=== PATIENT | female | born 1940 | race Caucasian/White ===

== ENCOUNTER → 2017-10-10 | Outpatient (CLI) | payer MEDICARE ==
[~2017-10-10] MED LIST: ALPR0.5T3 PO; CALC600T10 PO; CRAN500C9 PO; LOSA100T PO; MAGN500T2 PO; VITACAP7 PO
[2017-10-10 12:43] LABS: AUTOMATED NEUTROPHIL # 6.2 TH/MM3 (1.8-7.7); BASOPHIL # 0.1 TH/MM3 (0-0.2); BASOPHIL % 0.9 % (0.0-2.0); EOSINOPHIL # 0.1 TH/MM3 (0-0.4); EOSINOPHIL % 1.5 % (0.0-4.0); HEMATOCRIT 37.9 % (35.0-46.0); HEMOGLOBIN 13.4 GM/DL (11.6-15.3); LYMPH % 13.5 % (9.0-44.0); LYMPHOCYTE # 1.1 TH/MM3 (1.0-4.8); MEAN CELL VOLUME 86.5 FL (80.0-100.0); MEAN CORPUSCULAR HEMOGLOBIN 30.6 PG (27.0-34.0); MEAN CORPUSCULAR HGB CONC 35.3 % (32.0-36.0); MEAN PLATELET VOLUME 6.6 FL (7.0-11.0); MONO % 9.3 % (0.0-8.0); MONOCYTE # 0.8 TH/MM3 (0-0.9); NEUT % 74.8 % (16.0-70.0); PLATELET COUNT 264 TH/MM3 (150-450); RED BLOOD COUNT 4.39 MIL/MM3 (4.00-5.30); RED CELL DISTRIBUTION WIDTH 14.7 % (11.6-17.2); WHITE BLOOD COUNT 8.2 TH/MM3 (4.0-11.0)
[2017-10-10 13:04] LABS: ALBUMIN 3.9 GM/DL (3.4-5.0); BLOOD UREA NITROGEN 21 MG/DL (7-18); CALCIUM 9.5 MG/DL (8.5-10.1); CHLORIDE 103 MEQ/L (98-107); CREATININE 1.09 MG/DL (0.50-1.00); GLOMERULAR FILTRATION RATE 49 ML/MIN (>89); GLUCOSE,FASTING 113 MG/DL (74-99); SODIUM (NA) 137 MEQ/L (136-145)
[2017-10-10 13:05] LABS: AST (GOT) 9 U/L (15-37)
[2017-10-10 13:08] LABS: ALKALINE PHOSPHATASE 59 U/L (45-117); ALT (GPT) 17 U/L (10-53); TOTAL BILIRUBIN ADULT 0.4 MG/DL (0.2-1.0); TOTAL PROTEIN 7.7 GM/DL (6.4-8.2)
[2017-10-10 14:18] LABS: BILIRUBIN, URINE NEG (NEG); BLOOD, URINE NEG (NEG); GLUCOSE,URINE NEG (NEG); HYALINE CAST, URINE 2 /lpf (RARE); KETONE, URINE NEG (NEG); NITRITE,URINE NEG (NEG); SQUAMOUS EPITHELIAL CELL URINE 4 /hpf (0-5); TRANSITIONAL EPI CELLS, URINE 1 /hpf; URINE COLOR LIGHT-YELLOW (YELLW/STRAW); URINE LEUKOCYTE ESTERASE LARGE (NEG)
--- NOTE | 2017-10-11 13:23 | EKG ---
Date Performed: 10/10/2017 Time Performed: 12:31:09 PTAGE: 77 years EKG: Sinus rhythm POSSIBLE LEFT ATRIAL ENLARGEMENT POSSIBLE RIGHT VENTRICULAR CONDUCTION DELAY POSSIBLE LEFT VENTRICUL AR HYPERTROPHY ABNORMAL ECG NO PREVIOUS TRACING DOCTOR: Kt Bell Interpretating Date/Time 10/11/2017 13:21:06
== END ==
LOC: CPRE 12:09
PROVIDERS: ATTEND Obstetrics & Gynecology Gynecology
DX: Z01.810 Encounter for preprocedural cardiovascular examination (principal); Z01.812 Encounter for preprocedural laboratory examination; N81.11 Cystocele, midline; R94.31 Abnormal electrocardiogram [ECG] [EKG]; R82.90 Unspecified abnormal findings in urine
CPT/HCPCS: 36415; 80053; 81001; 85025; 87086; 93005

== ENCOUNTER → 2017-10-18 | Day surgery (SDC) | payer MEDICARE, BC ==
--- NOTE | 2017-10-10 12:21 | MH ---
cc: Kulwinder Coyle MD DATE OF ADMISSION: 10/18/2017 REASON FOR ADMISSION: Scheduled for admission 10/18/2017 for anterior and posterior repair. HISTORY OF PRESENT ILLNESS: The patient is a 77-year-old white female, 3, para 3, who has issues with stage III pelvic organ prolapse, anterior compartment predominant. She has documented urinary retention of over 900 mL. She, at this point, has opted for surgical correction. PAST MEDICAL HISTORY: Notable for hypertension, renal cyst on the right kidney, stable 6 cm. Also note, a distant history of hepatitis C, apparently has negative titers at this point. MEDICATIONS: 1. Xanax 0.25 mg every day p.r.n. 2. Losartan 100 mg daily. SOCIAL HISTORY: , has good social support. No alcohol, tobacco, or caffeine. OB HISTORY: Two vaginal deliveries. WAITER/WAITRESS HISTORY: No STDs or abnormal Pap smears. ALLERGIES: NONE. FAMILY HISTORY: Noncontributory. REVIEW OF SYSTEMS: As above. No chest pain, orthopnea, PND. No nausea, vomiting, fevers or chills. No vaginal bleeding or discharge. PHYSICAL EXAM: VITAL SIGNS: She is afebrile, vital signs are stable. Blood pressure is 120/70. Her height is 5 feet 2 inches, her weight 128. Her BMI is 23. GENERAL: The patient is alert and oriented in no acute distress. No sign of cognitive dysfunction or depression. HEENT: Within normal limits. NECK: Supple. No JVD. CHEST: Clear. HEART: Regular rate and rhythm. ABDOMEN: Soft, nontender. No hepatosplenomegaly, mass or tenderness. PELVIC: Exam in the office shows POP-Q score a Aa is +2. Ap is 0. Urinary retention with postvoid residual of 900 mL. Further exam under anesthesia. EXTREMITIES: Normal. SKIN: Without rashes. NEUROLOGIC: Nonfocal. No DVT signs. ASSESSMENT AND PLAN: A patient with stage III pelvic organ prolapse, anterior compartment predominant with urinary retention. The patient and I discussed options for management and treatment. She is aware of the risks, benefits and alternatives of the planned procedure including damage to surrounding organs, bleeding, infection, de ramin incontinence, need for catheterization, dyspareunia. The patient understands the plan. She is somewhat apprehensive about going home with a catheter, but she is more likely to have de ramin incontinence and retention, but the need for catheterization should not require inpatient hospitalization. We will use deep venous thrombosis prophylaxis with sequential compression device and antibiotic prophylaxis with Ancef 2 grams. Anticipate outpatient procedures. MD MK Nugent/YOSELIN , 12:04 PM , 12:21 PM
[~2017-10-18] VITALS: Ht 170.2 cm; Wt 57.8 kg
[~2017-10-18] MED LIST changes: +CHLORHEXIDINE GLUCONATE 2 % 1 PACK (2 CLOTHS) TOPICAL PRN; +DEXAMETHASONE SOD PHOS 4 MG/ML VIAL IV ONE; +DO NOT ADM ANY ANTICOAGULANT DRUGS PRN; +ESTROGENS CONJUGATED VAG CREA 15 APPL/30 GM TUBE ONE; +FLUORESCEIN SOD 10% SOLN 500 MG/5 ML AMP ONE; +GLYCOPYRROLATE 1 MG/5 ML SYRINGE IV PUSH ONE; +KETOROLAC TROMETHAMINE 30 MG/ML (IVP) VIAL IV PUSH PRN; +LACTATED RINGER'S 1000 ML IV PRN; +LIDOCAINE 1%/EPINEPHrine 1:100,000 SOLN 30 ML VIAL ONE; +LIDOCAINE HCL 1% PF 5 ML SYRINGE OTHER ONE; +METHYLENE BLUE 10 MG/ML VIAL ONE; +METOPROLOL TARTRATE 25 MG TAB PO PRN; +NEOSTIGMINE 5 MG/5 ML SYRINGE IV PUSH ONE; +ONDANSETRON HCL 4 MG/2 ML VIAL IV ONE; +ONDANSETRON HCL 4 MG/2 ML VIAL IV PRN; +POVIDONE IODINE 5% (ANTISEPSIS KIT) 4 APPLICATIONS EACH NARE PRN; +PROPOFOL 200 MG/20 ML AMP IV ONE; +ROCURONIUM INJ 50 MG/5 ML SYRINGE IV PUSH ONE; +SODIUM CHLORID 0.9% 500 ML IV PRN; +ceFAZolin 2 GM/NS PREMIX 100 ML IV SCH; +traMADol HCL 50 MG TAB PO PRN
--- NOTE | 2017-10-18 10:30 | MP ---
cc: Kulwinder Coyle MD DATE OF OPERATION: 10/18/2017 PREOPERATIVE DIAGNOSES 1. Midline cystocele, code N81.11. 2. Urinary retention, code R33.8. 3. Rectocele, code N81.6. 4. Uterine prolapse, code N81.2. PROCEDURE PERFORMED: 1. Anterior/posterior repair with enterocele, code 54113. 2. Hysteropexy, code 15289. 3. Diagnostic cystoscopy, code 72380. SURGEON: Kulwinder Coyle MD ANESTHESIA: General endotracheal. ESTIMATED BLOOD LOSS: 20 mL. URINE OUTPUT: 500 mL. JET BLADE [employer]ISHER: [facility] staff x 1. FINDINGS: External genitalia: poorly estrogenized. POP-Q score Aa is +2, Ap is 0, point C is -2, total vaginal length is 10, genital hiatus is 8, perineal body is 2. Following repair: Aa is -3, Ap is -3, point C is -8, total vaginal length is 8, genital hiatus is 4, perineal body is 5. Rectal exam normal following repair. Cystoscopy shows normal trigone, some sediment in the bladder, but no other significant findings. Ureteral orifices patent x 2. Dome and base of bladder, normal. Urethra, normal SPECIMENS: None. COMPLICATIONS: None. DISPOSITION: To recovery room stable. COUNTS: Needle and sponge counts correct. DRAINS: Fan catheter. ANTIBIOTIC PROPHYLAXIS: Ancef 1 gram. DVT PROPHYLAXIS: Sequential compression devices. TIME-OUT PROCEDURE AND IDENTIFICATION: Per protocol. SUMMARY OF INDICATIONS FOR THE PROCEDURE: The patient with symptomatic pelvic organ prolapse and anterior compartment predominant with documented urinary retention. PROCEDURE NOTE: The patient was taken to the operating room theater, identified, prepped and draped in a fashion appropriate for the planned procedure. She was placed in the dorsal lithotomy position with careful attention paid to placement of legs in the stirrups to avoid undue stress test to sensitive neurovascular structures. Neurovascular integrity documented. A Fan catheter was placed. Methylene blue was instilled into the bladder. The anterior mucosa was infiltrated with epinephrine/lidocaine solution. A midline incision was made with sharp scissors. We dissected the perivesical tissues from the mucosa. There was no spill of methylene blue. The colporrhaphy was performed with delayed absorbable suture. The mucosa was closed with a running Vicryl suture. The posterior compartment still had significant defect. We infiltrated here with epinephrine/lidocaine solution and made a midline incision to the apex, performed standard posterior repair and extraperitoneal hysteropexy without complication with one finger in the rectum to give us traction and countertraction. There was no damage to the rectum. The mucosa was trimmed. The mucosa was closed. Hemostatic matrix was used for hemostasis to obviate the need for packing. Perineorrhaphy was performed to decrease the genital hiatus from 8 to 4 and this also helped to substantially increase the perineal body. Procedure was concluded. The patient reversed from anesthesia and taken to the recovery room in stable condition. Also note, the cystoscopy was performed with the above findings. Kulwinder Coyle MD CJSwati/YOSELIN , 10:04 AM , 10:28 AM
[2017-10-18 11:50] VITALS: BP 144/53; PULSE 78; RESP 20; TEMP 98; O2SAT 100
== END | disposition home or self-care (01) ==
LOC: HSDC 05:52 → EDUNIT# 09:30
PROVIDERS: ATTEND Obstetrics & Gynecology Gynecology
DX: N81.2 Incomplete uterovaginal prolapse (principal); N81.6 Rectocele; R33.9 Retention of urine, unspecified; I10 Essential (primary) hypertension; N28.1 Cyst of kidney, acquired; Z86.19 Personal history of other infectious and parasitic diseases
CPT/HCPCS: 00840; 57265; 57282; J1100; J2405; J2710; J3010; J7120